=== PATIENT | male | born 1945 | race Caucasian/White ===

== ENCOUNTER 2021-10-10 12:24 | Outpatient (CLI) | payer MEDICARE | END 2021-10-10 12:25 | disposition home or self-care (01) | LOC: BICMRI 12:24 | PROVIDERS: ATTEND Family Medicine | DX: G31.84 Mild cognitive impairment of uncertain or unknown etiology (principal); F25.1 Schizoaffective disorder, depressive type; K11.8 Other diseases of salivary glands | CPT/HCPCS: 36415; 70553; 80053; 80061; 85025 ==